=== PATIENT | male | born 1965 | race Hispanic/Latino ===

== ENCOUNTER 2019-02-16 18:23 | Emergency (ER) | payer BC ==
[2019-02-16] MEDS ORDERED: HYDROCODONE/CHLORPHEN 5 ML/OSYR ONE (19:10)
[2019-02-16] MEDS ORDERED: ALBUTEROL 2.5 MG/3 ML NEB SOL ONE (19:10)
[2019-02-16] MEDS ORDERED: IPRATROPIUM BROM 0.5MG/2.5ML ONE (19:10)
[2019-02-16] MEDS ORDERED: predniSONE 20 MG TAB ONE (19:11)
--- NOTE | 2019-02-16 19:17 | RAD REPORT ---
EXAM DESCRIPTION: RAD - Chest Pa And Lat (2 Views) - 02/16/2019 7:10 pm CLINICAL HISTORY: COUGH Chest pain. COMPARISON: No comparisons FINDINGS: The lungs are clear. The heart is normal in size. No displaced fractures. IMPRESSION: No acute or concerning finding suspected.
--- NOTE | 2019-02-16 20:14 | EDPHYS ---
Physician Documentation [facility] Name: Speedy Marshall Age: 53 yrs Sex: Male : 1965 Arrival Date: 02/16/2019 Time: 18:26 Bed 30 Private MD: aJma Hampton E ED Physician Duncan Cramer HPI: 02/16 18:53 This 53 yrs old Male presents to ER via Ambulatory with complaints of Flu pm1 Symptoms. 18:53 The patient or guardian reports cough, with productive sputum, that is white, flu pm1 symptoms. Onset: The symptoms/episode began/occurred 2 day(s) ago. Severity of symptoms: in the emergency department the symptoms are actually worse. Modifying factors: The symptoms are alleviated by OTC cold preparation, the symptoms are aggravated by nothing. Associated signs and symptoms: Pertinent positives: sore throat, subjective fever, chills, wheezing, Pertinent negatives: chest pain, diarrhea, nausea, vomiting. The patient has not recently seen a physician. Historical: - Allergies: 18:40 No Known Allergies; hb - Home Meds: 18:40 Fish Oil 1,000 mg Oral cap daily [Active]; lisinopril-hydrochlorothiazide 10-12.5 mg hb Oral tab 1 tab once daily [Active]; metformin 1,000 mg Oral tab 1 tab 2 times per day [Active]; multivitamin Oral tab daily [Active]; vitamin E 400 unit Oral cap daily [Active]; - PMHx: 18:40 Diabetes - NIDDM; Hypertension; hb - PSHx: 18:40 None; hb - Immunization history:: Adult Immunizations up to date. - Social history:: Smoking status: Patient uses tobacco products, smokes one pack cigarettes per day. - Ebola Screening: : No symptoms or risks identified at this time. ROS: 18:53 Eyes: Negative for injury, pain, redness, and discharge, Neck: Negative for injury, pm1 pain, and swelling. 18:53 Cardiovascular: Negative for chest pain, palpitations, and edema. 18:53 Abdomen/GI: Negative for abdominal pain, nausea, vomiting, diarrhea, and constipation, Back: Negative for injury and pain, : Negative for injury, bleeding, discharge, and swelling, MS/Extremity: Negative for injury and deformity, Skin: Negative for injury, rash, and discoloration, Neuro: Negative for headache, weakness, numbness, tingling, and seizure. 18:53 Constitutional: Positive for body aches, chills, Negative for poor PO intake. 18:53 ENT: Positive for sinus congestion, sinus pain, sore throat, Negative for ear pain, difficulty swallowing, difficulty handling secretions, hoarseness. 18:53 Respiratory: Positive for cough, shortness of breath, wheezing. Exam: 18:53 Constitutional: This is a well developed, well nourished patient who is awake, alert, pm1 and in no acute distress. Head/Face: Normocephalic, atraumatic. Eyes: Pupils equal round and reactive to light, extra-ocular motions intact. Lids and lashes normal. Conjunctiva and sclera are non-icteric and not injected. Cornea within normal limits. Periorbital areas with no swelling, redness, or edema. ENT: Nares patent. No nasal discharge, no septal abnormalities noted. Tympanic membranes are normal and external auditory canals are clear. Oropharynx with no redness, swelling, or masses, exudates, or evidence of obstruction, uvula midline. Mucous membranes moist. Neck: Trachea midline, no thyromegaly or masses palpated, and no cervical lymphadenopathy. Supple, full range of motion without nuchal rigidity, or vertebral point tenderness. No Meningismus. Chest/axilla: Normal chest wall appearance and motion. Nontender with no deformity. No lesions are appreciated. Cardiovascular: Regular rate and rhythm with a normal S1 and S2. No gallops, murmurs, or rubs. Normal PMI, no JVD. No pulse deficits. 18:53 Abdomen/GI: Soft, non-tender, with normal bowel sounds. No distension or tympany. No guarding or rebound. No evidence of tenderness throughout. Back: No spinal tenderness. No costovertebral tenderness. Full range of motion. Skin: Warm, dry with normal turgor. Normal color with no rashes, no lesions, and no evidence of cellulitis. MS/ Extremity: Pulses equal, no cyanosis. Neurovascular intact. Full, normal range of motion. 18:53 Respiratory: the patient does not display signs of respiratory distress, Respirations: normal, Breath sounds: wheezing: expiratory that is mild, is heard diffusely. 18:53 Neuro: Orientation: is normal, Motor: is normal, moves all fours. Vital Signs: 18:39 BP 147 / 92; Pulse 90; Resp 20; Temp 97.3; Pulse Ox 94% on R/A; Weight 106.59 kg; hb Height 5 ft. 9 in. (175.26 cm); Pain 2/10; 20:23 BP 135 / 78; Pulse 90; Resp 18; Temp 98; Pulse Ox 95% on R/A; Pain 0/10; mg2 18:39 Body Mass Index 34.70 (106.59 kg, 175.26 cm) hb MDM: 18:47 Patient medically screened. pm1 18:56 Data reviewed: vital signs. pm1 20:10 Special discussion: smoking cessation. Will prescribe antibiotics due to possible early pm1 COPD. Patient has been smoking for greater than 10 years and smokes 1.5 packs per day . 20:13 Counseling: I had a detailed discussion with the patient and/or guardian regarding: the pm1 historical points, exam findings, and any diagnostic results supporting the discharge/admit diagnosis, lab results, radiology results, the need for outpatient follow up, to return to the emergency department if symptoms worsen or persist or if there are any questions or concerns that arise at home, need to wear PPE for dust at work. 02/16 18:53 Order name: Flu; Complete Time: 20:04 pm1 02/16 18:53 Order name: Strep; Complete Time: 20:04 pm1 02/16 18:53 Order name: Chest Pa And Lat (2 Views) XRAY; Complete Time: 19:19 pm1 02/16 19:50 Order name: Throat Culture EDMS Administered Medications: 19:05 Drug: Tussionex Pennkinetic ER 5 ml Route: PO; mg2 20:07 Follow up: Response: No adverse reaction; Marked relief of symptoms mg2 19:06 Drug: Albuterol 2.5 mg Route: Inhalation; mg2 20:08 Follow up: Response: No adverse reaction; Marked relief of symptoms mg2 19:06 Drug: AtroVENT Aerosol 0.5 mg Route: Inhalation; mg2 20:08 Follow up: Response: No adverse reaction; Marked relief of symptoms mg2 19:06 Drug: predniSONE 60 mg Route: PO; mg2 20:08 Follow up: Response: No adverse reaction; Marked relief of symptoms mg2 Disposition: 02/16/19 20:14 Discharged to Home. Impression: Cough, Reactive Airway Disease. - Condition is Stable. - Discharge Instructions: Chronic Obstructive Pulmonary Disease, Steps to Quit Smoking, Cough, Adult. - Prescriptions for Zithromax Z- Bertram 250 mg Oral Tablet - take 1 tablet by ORAL route as directed for 5 days Day 1 - take two (2) tablets one time. Day 2, 3, 4 , 5 take one (1) tablet once daily.; 6 tablet. Medrol (Bertram) 4 mg Oral Tablets, Dose Pack - take 1 tablet by ORAL route as directed - follow package instructions; 1 packet. Albuterol Sulfate 90 mcg/actuation - inhale 1-2 puff by INHALATION route every 4-6 hours; 1 Inhaler. Guaifenesin AC 10- 100 mg/5 mL Oral Liquid - take 10 milliliter by ORAL route every 4 hours As needed; 240 milliliter. - Work release form, Medication Reconciliation Form, Thank You Letter, Antibiotic Education, Prescription Opioid Use form. - Follow up: Emergency Department; When: As needed; Reason: Worsening of condition. Follow up: Private Physician; When: 2 - 3 days; Reason: Recheck today's complaints, Continuance of care, Re-evaluation by your physician. - Problem is new. - Symptoms have improved. Signatures: Dispatcher [employer] EDMS Terry Gao NP COATER OPERATOR pm1 Rose Bagley RN RN hb Manoj Matute RN RN mg2 Corrections: (The following items were deleted from the chart) 20:14 20:14 02/16/2019 20:14 Discharged to Home. Impression: Bronchitis, not specified as pm1 acute or chronic. Condition is Stable. Forms are Medication Reconciliation Form, Thank You Letter, Antibiotic Education, Prescription Opioid Use. Follow up: Emergency Department; When: As needed; Reason: Worsening of condition. Follow up: Private Physician; When: 2 - 3 days; Reason: Recheck today's complaints, Continuance of care, Re-evaluation by your physician. Problem is new. Symptoms have improved. pm1 20:24 20:14 02/16/2019 20:14 Discharged to Home. Impression: Cough; Reactive Airway Disease. mg2 Condition is Stable. Forms are Medication Reconciliation Form, Thank You Letter, Antibiotic Education, Prescription Opioid Use. Follow up: Emergency Department; When: As needed; Reason: Worsening of condition. Follow up: Private Physician; When: 2 - 3 days; Reason: Recheck today's complaints, Continuance of care, Re-evaluation by your physician. Problem is new. Symptoms have improved. pm1
--- NOTE | 2019-02-16 20:14 | ER ---
Nurse's Notes [facility] Name: Speedy Marshall Age: 53 yrs Sex: Male : 1965 Arrival Date: 02/16/2019 Time: 18:26 Bed 30 Private MD: Jama Hampton E Diagnosis: Cough;Reactive Airway Disease Presentation: 02/16 18:36 Presenting complaint: SOB, productive cough with white sputum, sinus congestion, hb shills, and subjective fever x 2 days. Transition of care: patient was not received from another setting of care. Onset of symptoms was February 16, 2019. Risk Assessment: Do you want to hurt yourself or someone else? Patient reports no desire to harm self or others. Care prior to arrival: None. 18:36 Method Of Arrival: Ambulatory hb 18:36 Acuity: CHAYO 3 hb 18:50 Initial Sepsis Screen: Does the patient meet any 2 criteria? No. Patient's initial mg2 sepsis screen is negative. Does the patient have a suspected source of infection? No. Patient's initial sepsis screen is negative. Historical: - Allergies: 18:40 No Known Allergies; hb - Home Meds: 18:40 Fish Oil 1,000 mg Oral cap daily [Active]; lisinopril-hydrochlorothiazide 10-12.5 mg hb Oral tab 1 tab once daily [Active]; metformin 1,000 mg Oral tab 1 tab 2 times per day [Active]; multivitamin Oral tab daily [Active]; vitamin E 400 unit Oral cap daily [Active]; - PMHx: 18:40 Diabetes - NIDDM; Hypertension; hb - PSHx: 18:40 None; hb - Immunization history:: Adult Immunizations up to date. - Social history:: Smoking status: Patient uses tobacco products, smokes one pack cigarettes per day. - Ebola Screening: : No symptoms or risks identified at this time. Screenin:49 Abuse screen: Denies threats or abuse. Denies injuries from another. Nutritional mg2 screening: No deficits noted. Tuberculosis screening: No symptoms or risk factors identified. Fall Risk None identified. Assessment: 18:49 General: Appears in no apparent distress. comfortable, Behavior is calm, cooperative. mg2 Pain: Denies pain. Neuro: Level of Consciousness is awake, alert, obeys commands, Oriented to person, place, time, situation. Cardiovascular: Capillary refill < 3 seconds Patient's skin is warm and dry. Respiratory: Reports cough that is Airway is patent Respiratory effort is even, unlabored, Respiratory pattern is regular, symmetrical. GI: No signs and/or symptoms were reported involving the gastrointestinal system. : No signs and/or symptoms were reported regarding the genitourinary system. EENT: No signs and/or symptoms were reported regarding the EENT system. Derm: Skin is intact, is healthy with good turgor, Skin is pink, warm \T\ dry. normal. Musculoskeletal: Circulation, motion, and sensation intact. Capillary refill < 3 seconds. 20:24 Reassessment: Patient appears in no apparent distress at this time. Patient and/or mg2 family updated on plan of care and expected duration. Pain level reassessed. Patient is alert, oriented x 3, equal unlabored respirations, skin warm/dry/pink. Patient states feeling better. Patient states symptoms have improved. Vital Signs: 18:39 BP 147 / 92; Pulse 90; Resp 20; Temp 97.3; Pulse Ox 94% on R/A; Weight 106.59 kg; hb Height 5 ft. 9 in. (175.26 cm); Pain 2/10; 20:23 BP 135 / 78; Pulse 90; Resp 18; Temp 98; Pulse Ox 95% on R/A; Pain 0/10; mg2 18:39 Body Mass Index 34.70 (106.59 kg, 175.26 cm) hb ED Course: 18:26 Patient arrived in ED. mr 18:26 Jama Hampton MD is Private Physician. mr 18:39 Triage completed. hb 18:39 Arm band placed on left wrist. hb 18:46 Manoj Matute, VIRGEN is Primary Nurse. mg2 18:46 Terry Gao NP is PHCP. pm1 18:46 Duncan Cramer MD is Attending Physician. pm1 18:49 No provider procedures requiring assistance completed. mg2 18:50 Patient has correct armband on for positive identification. mg2 19:08 Chest Pa And Lat (2 Views) XRAY In Process Unspecified. EDMS 20:23 Patient did not have IV access during this emergency room visit. mg2 Administered Medications: 19:05 Drug: Tussionex Pennkinetic ER 5 ml Route: PO; mg2 20:07 Follow up: Response: No adverse reaction; Marked relief of symptoms mg2 19:06 Drug: Albuterol 2.5 mg Route: Inhalation; mg2 20:08 Follow up: Response: No adverse reaction; Marked relief of symptoms mg2 19:06 Drug: AtroVENT Aerosol 0.5 mg Route: Inhalation; mg2 20:08 Follow up: Response: No adverse reaction; Marked relief of symptoms mg2 19:06 Drug: predniSONE 60 mg Route: PO; mg2 20:08 Follow up: Response: No adverse reaction; Marked relief of symptoms mg2 Outcome: 20:14 Discharge ordered by MD. pm1 20:23 Discharged to home ambulatory, with family. mg2 20:23 Condition: stable 20:23 Discharge instructions given to patient, family, Instructed on discharge instructions, follow up and referral plans. medication usage, Demonstrated understanding of instructions, follow-up care, medications, Prescriptions given X 4. 20:24 Patient left the ED. mg2 Signatures: Dispatcher [employer] EDIN KeithTina SimaTerry NP PRIMARY CARE SALES REPRESENTATIVE pm1 Rose Bagley RN RN hb Gardose, Michele, RN RN mg2
== END 2019-02-16 20:24 | disposition home or self-care (01) ==
LOC: ER 18:23
DX: R05 Cough (principal); J45.909 Unspecified asthma, uncomplicated; E11.9 Type 2 diabetes mellitus without complications; I10 Essential (primary) hypertension; F17.210 Nicotine dependence, cigarettes, uncomplicated
CPT/HCPCS: 71046; 87070; 87081; 87804; 99284; J7512